=== PATIENT | male | born 1980 | race Caucasian/White ===

== ENCOUNTER 2022-06-15 15:10 | Emergency (ER) | payer MEDICAID ==
[~2022-06-15] VITALS: Ht 180.3 cm; Wt 63.5 kg
[2022-06-15] MEDS ORDERED: SODIUM CHLORIDE 0.9% 1,000 ML IV ONE ×2 (15:45)
[2022-06-15] MEDS ORDERED: cefTRIAXone 1GM/50ML D5W 50 ML IV ONE (15:45)
[2022-06-15] MEDS ORDERED: CLINDAMYCIN 600MG IV 50 ML IV ONE (15:45)
[2022-06-15 16:23] LABS: Basophils # (auto) 0 10 ^3/uL (0-0.2); Basophils % (auto) 0.3 % (0.0-2.0); Eosinophils # (auto) 0 10 ^3/uL (0-0.8); Eosinophils % (auto) 0.5 % (0.0-7.0); Hematocrit 43.8 % (41.0-53.0); Hemoglobin 13.8 g/dL (13.5-17.5); Lymphocytes # (auto) 0.6 10 ^3/uL (0.4-5.4); Lymphocytes % (auto) 6.1 % (10.0-50.0); Mean Corpuscular Hemoglobin 28.1 pg (28.0-32.0); Mean Corpuscular Hgb Conc. 31.5 g/dL (32.0-36.0); Mean Corpuscular Volume 89.4 fL (80.0-100.0); Monocytes # (auto) 0.8 10 ^3/uL (0-1.3); Monocytes % (auto) 8.6 % (0.0-12.0); Neutrophils # (auto) 7.7 10 ^3/uL (1.6-8.6); Neutrophils % (auto) 84.5 % (37.0-80.0); Nucleated Red Blood Cells % 0.1 %; Red Cell Distribution Width 13.5 % (11.8-14.3); White Blood Cell 9.2 10^3/uL (4.4-10.8)
[2022-06-15 16:25] LABS: Albumin 3.4 g/dL (3.4-5.0); Calcium 8.3 mg/dL (8.5-10.1); Potassium 4.1 mmol/L (3.5-5.1)
[2022-06-15 16:27] LABS: BUN/Creatinine Ratio 12.3
[2022-06-15 16:30] LABS: Bilirubin, Total 0.2 mg/dL (0.2-1.0); Total Protein 7.7 g/dL (6.4-8.2)
[2022-06-15 21:20] VITALS: BP 124/78
== END 2022-06-15 21:27 | disposition home or self-care (01) ==
LOC: ER 15:10 → EDBD 15:10 → ER 21:27
DX: R07.89 Other chest pain (principal); L02.414 Cutaneous abscess of left upper limb; R06.02 Shortness of breath
CPT/HCPCS: 36415; 70450; 71045; 80053; 80320; 85025; 96365; 96367; 99285; J0696; J3490; J7030